=== PATIENT | female | born 1990 | race Caucasian/White ===

== ENCOUNTER → 2016-11-26 | Outpatient (CLI) | payer BC ==
[~2016-11-26] MED LIST: ALBINS INH; ALBUAER2 INH; BCPILLS PO; SNG10 PO
== END | disposition home or self-care (01) ==
LOC: C.PAPS 14:06
PROVIDERS: ATTEND Obstetrics & Gynecology
DX: Z01.411 Encounter for gynecological examination (general) (routine) with abnormal findings (principal); R87.610 Atypical squamous cells of undetermined significance on cytologic smear of cervix (ASC-US)

== ENCOUNTER → 2016-11-26 | Outpatient (CLI) | payer BC ==
[2016-11-28 14:14] LABS: CHLAMYDIA TRACH RNA*** NOT DETECTED (NOT DETECTED); GC (NEIS GONORRHOEAE)RNA** NOT DETECTED (NOT DETECTED)
== END | disposition home or self-care (01) ==
LOC: C.LABSPEC 13:21
PROVIDERS: ATTEND Obstetrics & Gynecology
DX: Z11.3 Encounter for screening for infections with a predominantly sexual mode of transmission (principal)

== ENCOUNTER → 2017-02-03 | Outpatient (CLI) | payer BC | END | disposition home or self-care (01) | LOC: C.PATHSPEC 17:54 | PROVIDERS: ATTEND Obstetrics & Gynecology | DX: R87.610 Atypical squamous cells of undetermined significance on cytologic smear of cervix (ASC-US) (principal); A63.0 Anogenital (venereal) warts ==